=== PATIENT | female | born 1995 | race Caucasian/White ===

== ENCOUNTER 2018-01-09 20:50 | Emergency (ER) | payer OTHER ==
[~2018-01-09] VITALS: Ht 165.1 cm; Wt 69.5 kg
[~2018-01-09 20:50] MED LIST: AZIT-63 PO; GABA-341 PO; IBUP-1051 PO; LEVA15HF4 IH; PSEU-225 PO
[2018-01-09 21:09] VITALS: BP 113/63
[2018-01-09] MEDS ORDERED: AMOX-422 PO (21:24)
[2018-01-09] MEDS ORDERED: TETanus/Pertussis (Acell)/Diphther VAC/PF (Tdap-Adult) 0.5ml syringe IM ONE (21:25)
[2018-01-09] MEDS ORDERED: bacitracin 15gm ointment TP ONE (21:25)
== END 2018-01-09 21:48 | disposition home or self-care (01) ==
LOC: ER 20:50
DX: S61.551A Open bite of right wrist, initial encounter (principal); S61.451A Open bite of right hand, initial encounter; Z79.899 Other long term (current) drug therapy; Z79.2 Long term (current) use of antibiotics; W54.0XXA Bitten by dog, initial encounter; Y93.89 Activity, other specified; Y92.89 Other specified places as the place of occurrence of the external cause; Y99.8 Other external cause status
CPT/HCPCS: 90471; 90715; 99283; A6255; A6446